=== PATIENT | male | born 1960 | race African-American/Black ===

== ENCOUNTER 2016-08-23 23:35 | Emergency (ER) | payer MEDICAID ==
[~2016-08-23] VITALS: Ht 172.7 cm; Wt 86.0 kg
[~2016-08-23 23:35] MED LIST: ASPIRIN PO; ASPRIN; BENA20TA77 PO; BENAZAPRIL PO; FENO48TA2 PO; INSU100C11 SQ; LANTUS SUBCUT; METF100C2 MC; METFORMIN PO; METO50TA95 PO; PROT40 PO; SERT50TA PO; TRIAMCINOLONE; [UNRECOGNIZED DRUG - CODE] MC
[2016-08-24] MEDS ORDERED: ONDANSETRON HCL 4MG/2ML VIAL IV ONE
[2016-08-24 00:38] LABS: BASOPHILS % 1.2 % (0.0-2.0); EOSINOPHILS % 0.6 % (0.0-5.0); HEMATOCRIT. 45.8 % (42.0-52.0); HEMOGLOBIN. 15.8 g/dL (14.0-18.0); LYMPHOCYTES % 10.9 % (20.0-50.0); MEAN CORPUSCULAR HEMOGLOBIN 30.2 pg (28.0-32.0); MEAN CORPUSCULAR HGB CONC 34.5 g/dL (31.0-37.0); MEAN CORPUSCULAR VOLUME 87.4 fL (80.0-94.0); MEAN PLATELET VOLUME 7.8 fl (7.4-10.4); MONOCYTES % 11.9 % (2.0-8.0); NEUTROPHILS % 75.4 % (40.0-76.0); PLATELET 271 x1000/uL (130-400); RED BLOOD CELL COUNT 5.24 mill/uL (4.7-6.1); RED CELL DISTRIBUTION WIDTH 13.9 % (11.6-14.6); WHITE BLOOD COUNT 8.2 x1000/uL (4.5-11.0)
[2016-08-24 00:39] LABS: CHLORIDE 100 mEq/L (98-107); INDEX HEMOLYSI 1 (1-3); INDEX ICTERIC 1 (1-4); INDEX LIPEMIC 1 (1-3)
[2016-08-24 00:48] LABS: ALANINE AMINOTRANSFERASE 27 IU/L (13-61); ALBUMIN 2.6 g/dL (3.4-5.0); ANION GAP 16; CALCIUM 8.5 mg/dL (8.5-10.1); CARBON DIOXIDE 24 mEq/L (21-32); UREA NITROGEN BLOOD 16 mg/dL (7-21); eGFR > 60 mL/min (>60)
[2016-08-24] MEDS ORDERED: MORPHINE SULFATE 4 MG/ML CPJ (NOT FOR IM USE) IV ONE ×2 (01:45)
[2016-08-24 02:41] VITALS: BP 139/72
== END 2016-08-24 04:37 | disposition home or self-care (01) ==
LOC: ER 23:47
DX: S42.301D Unspecified fracture of shaft of humerus, right arm, subsequent encounter for fracture with routine healing (principal); X95.9XXD Assault by unspecified firearm discharge, subsequent encounter; M79.622 Pain in left upper arm; M79.89 Other specified soft tissue disorders; I10 Essential (primary) hypertension; E11.9 Type 2 diabetes mellitus without complications; Z79.899 Other long term (current) drug therapy; Z79.82 Long term (current) use of aspirin; Z79.4 Long term (current) use of insulin; J45.909 Unspecified asthma, uncomplicated; Z86.718 Personal history of other venous thrombosis and embolism
CPT/HCPCS: 36415; 73060; 80053; 85025; 96374; 96375; 96376; 99285; J2270; J2405; Z7610